=== PATIENT | female | born 1980 | race African-American/Black ===

== ENCOUNTER 2016-12-20 15:09 | Inpatient (IN) | payer OTHER ==
[2016-12-20 15:13] VITALS: BMI 29.2
--- NOTE | 2016-12-20 16:05 | PDOC ---
History of Present Illness - General Chief Complaint: Pain Stated Complaint: ABD PAIN History Source: Patient Exam Limitations: No Limitations - History of Present Illness Initial Comments: 12/20/16 16:05 This is a 36 yo F with PMH of preeclampsia affecting liver, and PSH of C section and tonsillectomy, who presents with epigastric pain since 6 am. Pain started suddenly and woke her up from sleep. It is sharp, throbbing, nonradiating, aggravated by movement and not alleviated by anything, including tums and food. She has never had pain like this before. She recently intentionally lost 15 lb. She denies associated n/v, chest pain, abd pain, sob, diarrhea, constipation, h/a, f/c, dysuria. Her last normal BM was yesterday. she denies melena, hematochezia. 12/20/16 17:16 12/20/16 18:07 Past History - Past Medical History Allergies/Adverse Reactions: Allergies Allergy/AdvReac Type Severity Reaction Status Date / Time No Known Allergies Allergy Verified 12/20/16 15:13 Home Medications: Ambulatory Orders NK [No Known Home Medication] 12/20/16 Other medical history: NONE - Psycho/Social/Smoking Cessation Hx Suicidal Ideation: No Smoking History: Never smoked Hx Alcohol Use: No Drug/Substance Use Hx: No Review of Systems - Review of Systems Able to Perform ROS?: Yes Comments:: 12/20/16 17:19 Is the patient limited Citizen Of [place] proficient: No Constitutional: No: Chills, Fever, Weakness, Unexplained wgt Loss HEENTM: No: Nose Congestion, Throat Pain, Difficulty Swallowing Respiratory: No: Cough, Orthopnea, Shortness of Breath ABD/GI: Yes: Abdominal cramping. No: Abdominal Distended, Blood Streaked Bowels , Constipated, Diarrhea, Nausea, Poor Appetite, Rectal Bleeding, Vomiting, Tarry Stools : No: Dysuria, Flank Pain Musculoskeletal: No: Back Pain, Joint Pain, Neck Pain Integumentary: No: Bruising, Pruritus, Rash Neurological: No: Headache, Numbness, Paresthesia Psychiatric: No: Anxiety, Depression Endocrine: No: Change in Weight Hematologic/Lymphatic: No: Anemia, Blood Clots, Easy Bleeding, Easy Bruising All Other Systems: Reviewed and Negative *Physical Exam - Vital Signs Last Vital Signs Temp Pulse Resp BP Pulse Ox 97.8 F 87 20 116/71 100 12/20/16 15:10 12/20/16 15:10 12/20/16 15:10 12/20/16 15:10 12/20/16 15:10 - Physical Exam Comments: 12/20/16 17:20 12/20/16 17:21 General: moderate distress AAOx3 HEENT:PERRLA EOMI, sclera anicteric, conjunctiva clear CV: RRR S1S2 Pulm: CTA b/l GI: soft, moderately tender epigastric area, nondistended, no guarding, no rebound, no mass, reduced bowel sounds. no CVA tenderness Neuro: CN II-XII grossly intact Musculoskeletal: no peripheral edema or calf tenderness Heart Score/ECG Review #1 ECG reviewed & interpreted by me at: 17:40 (sinus adiel 65, no st changes ) General ECG Interpretation: Sinus Rhythm, Normal Intervals, No acute ischemic changes ED Treatment Course - LABORATORY CBC & Chemistry Diagram: 12/20/16 16:51 12/20/16 16:51 Medical Decision Making - Medical Decision Making 12/20/16 17:19 Patient presents with clinical picture most consistent with epigastric pain due to cholecystitis vs gastritis vs gastric ulcer. R/o acs, esophageal perf, erroding ulcer, abscess CBC unremarkable CMP Preg test CXR patient given zantac, maalox with no symptom relief, then given oxycodone with some relief. EKG unremarkable. 12/20/16 17:22 Bedside US + murphys, reveals gb with thickened wall, possible sludge. Will start IVF NS 1L, IV morphine. Abx not indicated ( no leukocytosis or fever ) CMP unremarkable, Serum negative, will order CXR and GB US 12/20/16 17:49 12/20/16 18:06 12/20/16 18:53 *DC/Admit/Observation/Transfer Diagnosis at time of Disposition: Epigastric abdominal pain
[2016-12-20] MEDS ORDERED: MAG HYDROX/AL HYDROX/SIMETH 30 ML UNIT-DOSE CUP PO ONE (16:26)
[2016-12-20] MEDS ORDERED: FAMOTIDINE 20 MG/50 ML IVPB 50 ML IVPB ONE (16:26)
[2016-12-20] MEDS ORDERED: MAG HYDROX/AL HYDROX/SIMETH 30 ML UNIT-DOSE CUP ONE (16:27)
[2016-12-20] MEDS ORDERED: RANITIDINE HCL 150 MG TABLET (FP) ONE (16:29)
[2016-12-20] MEDS ORDERED: RANITIDINE HCL 150 MG TABLET (FP) PO ONE (16:35)
--- NOTE | 2016-12-20 16:45 | PDOC ---
Attending Attestation - Resident Resident Name: Noemí Shi - ED Attending Attestation I have performed the following: I have examined & evaluated the patient, The case was reviewed & discussed with the resident, I agree w/resident's findings & plan, Exceptions are as noted - HPI HPI: 36 yo F no significant PMH presents with epigastric pain, sudden onset, waxing and waning, severe at times. She has not had pain like it in the past. She has not taken anything for the pain. No fever, chills, nausea, vomiting, or diarrhea. - Physicial Exam PE: GENERAL: Awake, alert, and fully oriented, in no acute distress. Appears uncomfortable. HEAD: No signs of trauma EYES: PERRLA, EOMI, sclera anicteric, conjunctiva clear ENT: Auricles normal inspection, hearing grossly normal, nares patent, oropharynx clear without exudates. Moist mucosa NECK: Normal ROM, supple, no lymphadenopathy, JVD, or masses LUNGS: Breath sounds equal, clear to auscultation bilaterally. No wheezes, and no crackles HEART: Regular rate and rhythm, normal S1 and S2, no murmurs, rubs or gallops ABDOMEN: Soft, +epigastric tenderness, normoactive bowel sounds. No guarding, no rebound. No masses EXTREMITIES: Normal range of motion, no edema. No clubbing or cyanosis. No cords , erythema, or tenderness NEUROLOGICAL: Cranial nerves II through XII grossly intact. Normal speech, normal gait SKIN: Warm, Dry, normal turgor, no rashes or lesions noted. - Medical Decision Making See continuation of care note for details.
[2016-12-20] MEDS ORDERED: oxyCODONE HCL 5 MG TABLET PO ONE (17:02)
[2016-12-20] MEDS ORDERED: oxyCODONE HCL 5 MG TABLET ONE (17:12)
[2016-12-20 17:15] LABS: EOSINOPHIL 1.5 % (0-4.5); MCH 28.4 pg (25.7-33.7); MCHC 33.6 g/dl (32.0-36.0); MEAN CELL VOLUME 84.5 fl (80-96); MEAN PLT VOLUME 8.6 fl (7.5-11.1); NEUTROPHILS 63.2 % (42.8-82.8); PLATELET COUNT 309 K/MM3 (134-434); WHITE BLOOD COUNT 6.6 K/mm3 (4.0-10.0)
[2016-12-20 17:49] LABS: ALBUMIN 3.9 g/dl (3.4-5.0); ANION GAP 8 (8-16); CALCIUM 9.2 mg/dL (8.5-10.1); CO2 28 mmol/L (21-32); CREATININE 0.6 mg/dL (0.55-1.02); GLUCOSE,RANDOM 83 mg/dL (74-106); SGOT/AST 12 U/L (15-37); SGPT/ALT 18 U/L (12-78); TOT PROT 7.2 g/dl (6.4-8.2)
[2016-12-20 17:51] LABS: ALK PHOS 48 U/L (45-117); TROPONIN I < 0.02 ng/ml (0.00-0.05)
[2016-12-20] MEDS ORDERED: morphine CARPU-JECT 4 MG/1 ML DISP.SYRIN IVPUSH ONE ×3 (17:51→22:13)
[2016-12-20] MEDS ORDERED: SODIUM CHLORIDE 1,000 ML IV STA (17:55)
[2016-12-20] MEDS ORDERED: morphine CARPU-JECT 4 MG/1 ML DISP.SYRIN ONE ×3 (18:29→22:15)
[2016-12-20] MEDS ORDERED: ONDANSETRON 4 MG/2 ML VIAL IVPUSH ONE (19:38)
[2016-12-20] MEDS ORDERED: ONDANSETRON 4 MG/2 ML VIAL ONE (19:39)
--- NOTE | 2016-12-20 22:07 | PDOC ---
*Physical Exam - Vital Signs Last Vital Signs Temp Pulse Resp BP Pulse Ox 97.9 F 62 20 111/65 98 12/20/16 20:07 12/20/16 20:07 12/20/16 20:07 12/20/16 20:07 12/20/16 20:07 ED Treatment Course - LABORATORY CBC & Chemistry Diagram: 12/20/16 16:51 12/20/16 16:51 - ADDITIONAL ORDERS Additional order review: Laboratory Results 12/20/16 12/20/16 12/20/16 18:50 16:51 16:51 Sodium 140 Potassium 3.7 Chloride 104 Carbon Dioxide 28 Anion Gap 8 BUN 11 Creatinine 0.6 Creat Clearance w eGFR > 60 Random Glucose 83 Lactic Acid 1.0 Calcium 9.2 Total Bilirubin 1.0 AST 12 L ALT 18 Alkaline Phosphatase 48 Creatine Kinase 146 Troponin I < 0.02 Total Protein 7.2 Albumin 3.9 Lipase 110 Serum , Qual Negative 12/20/16 16:51 RBC 4.48 MCV 84.5 MCHC 33.6 RDW 13.0 MPV 8.6 Neutrophils % 63.2 Lymphocytes % 26.8 Monocytes % 7.5 Eosinophils % 1.5 Basophils % 1.0 - RADIOLOGY Radiology Studies Ordered: Category Date Time Status CXRPORT [CHEST X-RAY PORTABLE*] [RAD] Stat Radiology 12/20/16 18:39 Taken - Medications Given in the ED: ED Medications Discontinued Medications Generic Name Dose Route Start Last Admin Trade Name Freq PRN Reason Stop Dose Admin Al Hydroxide/Mg Hydroxide 30 ml 12/20/16 16:26 12/20/16 16:35 Mylanta Oral Suspension - PO 12/20/16 16:27 30 ml ONCE ONE Administration Famotidine/Sodium Chloride 50 mls @ 100 mls/hr 12/20/16 16:26 12/20/16 16:36 Pepcid 20 Mg Premixed Ivpb - IVPB 12/20/16 16:55 Not Given ONCE ONE Sodium Chloride 1,000 mls @ 1,000 mls/hr 12/20/16 17:55 12/20/16 18:06 Normal Saline - IV 12/20/16 18:54 1,000 mls/hr ASDIR STA Administration Morphine Sulfate 4 mg 12/20/16 17:51 12/20/16 18:33 Morphine Injection - IVPUSH 12/20/16 17:52 4 mg ONCE ONE Administration Morphine Sulfate 4 mg 12/20/16 19:25 12/20/16 19:55 Morphine Injection - IVPUSH 12/20/16 19:26 4 mg ONCE ONE Administration Ondansetron HCl 4 mg 12/20/16 19:38 12/20/16 19:42 Zofran Injection IVPUSH 12/20/16 19:39 4 mg ONCE ONE Administration Oxycodone HCl 10 mg 12/20/16 17:02 12/20/16 17:12 Roxicodone - PO 12/20/16 17:03 10 mg ONCE ONE Administration Ranitidine HCl 150 mg 12/20/16 16:35 12/20/16 16:37 Zantac - PO 12/20/16 16:36 150 mg ONCE ONE Administration Medical Decision Making - Medical Decision Making 12/20/16 19:11 Care assumed by this junior technical writer at shift change. In short, patient with epigastric and mid-abdominal pain, sudden onset, sharp, severe at times. Awaiting sono for further evaluation. 12/21/16 22:12 Sono with no acute findings. Patient reassessed. She is still having pain, with some reported improvement from prior exam, but still noted to be exquisitely tender to the mid-abdomen. Will obtain CT to further evaluate. 12/21/16 00:26 Case d/w Dr. Gutiérrez. Will admit for SBO. I have written order for NGT and IV fluids. Will request evaluation by Dr. Jacob as per Dr. Gutiérrez request. *DC/Admit/Observation/Transfer Diagnosis at time of Disposition: Small bowel obstruction - Discharge Dispostion Condition at time of disposition: Guarded Admit: Yes - Referrals - Patient Instructions - Post Discharge Activity
[2016-12-21] MEDS ORDERED: SODIUM CHLORIDE 1,000 ML IV SCH (00:30)
[2016-12-21] MEDS ORDERED: LIDOCAINE HCL 2% JELLY 10 ML CARTRIDGE ONE (01:22)
[2016-12-21 01:55] LABS: URINE APPEARANCE CLEAR; URINE BILIRUBIN NEGATIVE (NEGATIVE); URINE COLOR LTYELLOW; URINE GLUCOSE (UA) NEGATIVE (NEGATIVE); URINE KETONE 2+ (NEGATIVE); URINE NITRITE NEGATIVE (NEGATIVE); URINE PROTEIN NEGATIVE (NEGATIVE); URINE UROBILINOGEN NEGATIVE E.U./dl (0.2-1.0)
[2016-12-21 01:58] LABS: URINE BLOOD 2+ (NEGATIVE); URINE LEUK ESTERASE TRACE (NEGATIVE)
[2016-12-21] MEDS: SODIUM CHLORIDE 1,000 ML IV SCH ×2 (02:01→15:11)
[2016-12-21 02:13] LABS: URINE MUCUS RARE; URINE RBC 20 /hpf (0-3); URINE WBC 6 /hpf (3-5)
[2016-12-21] MEDS ORDERED: TETRACAINE/BENZOCAINE/BUTAMBEN 20 GM SPR TP PRN ×2 (02:14→19:53)
[2016-12-21] MEDS: morphine CARPU-JECT 2 MG/1 ML DISP.SYRIN IVPUSH PRN ×4 (02:34→15:08)
[2016-12-21] MEDS: ONDANSETRON 4 MG/2 ML VIAL IVPB PRN ×2 (02:35→10:57)
[2016-12-21] MEDS ORDERED: PANTOPRAZOLE SODIUM 40 MG in SODIUM CHLORIDE 100 ML IVPB SCH (10:00)
[2016-12-21] MEDS ORDERED: PANTOPRAZOLE SODIUM 40 MG/100 ML PRE-DOCKED IVPB SCH (10:00)
--- NOTE | 2016-12-21 11:08 | EKG ---
Test Reason : Blood Pressure : / mmHG Vent. Rate : 055 BPM Atrial Rate : 055 BPM P-R Int : 116 ms QRS Dur : 090 ms QT Int : 450 ms P-R-T Axes : 037 062 064 degrees QTc Int : 430 ms SINUS BRADYCARDIA OTHERWISE NORMAL ECG NO PREVIOUS ECGS AVAILABLE Confirmed by BLADE MARTINEZ MD ([id number]) on 12/21/2016 11:08:17 AM Referred By: Confirmed By:BLADE MARTINEZ MD
--- NOTE | 2016-12-21 15:12 | CON.GI ---
Consult Consult Specialty:: GI Referred by:: Dr. Beverly Reason for Consultation:: Abdominal Pain - History of Present Illness Chief Complaint: I started having abdominal pain yesterday morning History of Present Illness: 36F admitted for evaluation of progressive abdominal pain. She explains that she was in her USOH up until yesterday morning when she was awoken by pain intially in the epigastrium. It then localized to the the mid/right abdomen. She at 1/2 a bagel and drank tea thinking the pain was from hunger. The pain worsened and she then took tums without relief. the pain intensity increased and she ultimately went to the ER yesterday afternoon because the pain persisted. She had vomiting only after receiving IV morphine in ER. CT scan revealed findings c/w PSBO with possible transition point at thickened loop of small bowel. She denied diarrhea, rectal bleeding or similar episodes in the past. There is no family history of IBD. - History Source History Provided By: Patient Limitations to Obtaining History: No Limitations - Past Medical History ...LMP: 11/27/16 ...: No Additional Medical History: Preeclampsia - Past Surgical History Past Surgical History: Yes: Additional Surgical History: IUD placement - Alcohol/Substance Use Hx Alcohol Use: No History of Substance Use: reports: None - Smoking History Smoking history: Never smoked - Social History Usual Living Arrangement: Alone ADL: Independent Occupation: [employer] and [employer] Place of : [facility] History of Recent Travel: No Home Medications - Allergies Allergies/Adverse Reactions: Allergies Allergy/AdvReac Type Severity Reaction Status Date / Time No Known Allergies Allergy Verified 12/20/16 15:13 - Home Medications Home Medications: Ambulatory Orders NK [No Known Home Medication] 12/20/16 Family Disease History - Family Disease History Family Disease History: Other: Father (alive: DM II), Mother (alive: healthy), Brother (1: healthy), Sister (1: healthy), Daughter (Autism) Other Family History: No family history of colorectal cancer or other GI malignancy Review of Systems - Review of Systems Constitutional: denies: Chills, Lethargy Cardiovascular: denies: Chest Pain Respiratory: denies: SOB Gastrointestinal: reports: Abdominal Pain, Bloating, Vomiting. denies: Constipation, Diarrhea, Melena, Rectal Bleeding Pain Intensity: 10 Physical Exam-GI Vital Signs: Vital Signs Temperature 98.9 F 12/21/16 14:26 Pulse Rate 66 12/21/16 14:26 Respiratory Rate 18 12/21/16 14:26 Blood Pressure 132/64 12/21/16 14:26 O2 Sat by Pulse Oximetry (%) 96 12/21/16 00:46 Constitutional: Yes: Calm Eyes: No: Sclera Icterus Cardiovascular: Yes: Regular Rate and Rhythm. No: Murmur Respiratory: Yes: CTA Bilaterally Gastrointestinal Inspection: No: Distention, Hernia ...Auscultate: Yes: Hypoactive Bowel Sounds ...Palpate: Yes: Tenderness (Marked tenderness to light palpation in the mid/ right abdomen) Edema: No Neurological: Yes: Alert, Oriented Imaging - Results Cat Scan: Report Reviewed, Image Reviewed Problem List - Problems (1) Small bowel obstruction Assessment/Plan: Persistent and marked focal tenderness in the mid/right paramedian area of the abdomen. given CT scan findings and acuity of the onset of her complaints, ? if this represents partially torsed portion of bowel from adhesion/band, ? intusscepted portion of bowel. She is being evaluated by the surgeon currently and likely will be going for laparoscopy given the persistence of her symptomatology IV Abx for now Code(s): K56.69 - OTHER INTESTINAL OBSTRUCTION
--- NOTE | 2016-12-21 15:31 | PN ---
Progress Note (short form) - Note Progress Note: surgery pt seen and examined. full consult dictated. 36f with previous c-sec, presents with now 2 days epigastric abd pain after eating pineapple. Ct shows concern for partial sbo and inflammatory fluid. Ngt has had minimal output overnight. Pt denies flatus or bm. on exam abd is soft, mild distension, mild epigastric tenderness Plan- persistent abd pain "I am miserable" with partial small bowel obstuction and abd fluid on CT. Pt wants exploratory surgery. will move in direction of surgery. Pt understands that there may be no surgical pathology but in the setting of persistent pain I am concerned for bowel compromise.
[2016-12-21] MEDS ORDERED: LEVOFLOXACIN 500 MG IVPB 100 ML IVPB SCH (15:45)
--- NOTE | 2016-12-21 15:51 | HP ---
Admitting History and Physical - Primary Care Physician PCP: Daisy Amador - Admission Chief Complaint: abdominal pain History of Present Illness: Ms Griffiths is a 36 year old female who comes in with abdominal pain. She says she was in her normal state of health until 2 days ago. She was eating and developed acute onset of pain. She says she was unsure if it was just indigestion or secondary to food, so she waited to see if it would improve. However it did not improve and she came in. She says the pain is located in her mid-lower abdomen. It is dull/achy but has sharp pain at times. It does not radiate. She had nausea and vomiting only after receiving morphine. She denies diarrhea. She denies fevers, chills, chest pain, shortness of breath, difficulty or pain on urination, or swelling. She is otherwise healthy with no medical problems History Source: Patient Limitations to Obtaining History: No Limitations - Past Medical History ...LMP: 11/27/16 ...: No - Past Surgical History Past Surgical History: Yes: - Smoking History Smoking history: Never smoked - Alcohol/Substance Use Hx Alcohol Use: No History of Substance Use: reports: None - Social History ADL: Independent Occupation: [employer] and [employer] History of Recent Travel: No Home Medications - Allergies Allergies/Adverse Reactions: Allergies Allergy/AdvReac Type Severity Reaction Status Date / Time No Known Allergies Allergy Verified 12/20/16 15:13 - Home Medications Home Medications: Ambulatory Orders NK [No Known Home Medication] 12/20/16 Family Disease History - Family Disease History Family Disease History: Other: Father (alive: DM II), Mother (alive: healthy), Brother (1: healthy), Sister (1: healthy), Daughter (Autism) Other Family History: No family history of colorectal cancer or other GI malignancy Review of Systems Findings/Remarks: Full review of systems obtained, as per HPI and otherwise negative Physical Examination Vital Signs: Vital Signs Temperature 98.9 F 12/21/16 14:26 Pulse Rate 66 12/21/16 14:26 Respiratory Rate 18 12/21/16 14:26 Blood Pressure 132/64 12/21/16 14:26 O2 Sat by Pulse Oximetry (%) 96 12/21/16 00:46 Constitutional: Yes: Moderate Distress Eyes: Yes: Conjunctiva Clear, EOM Intact, PERRL HENT: Yes: Atraumatic, Normocephalic Cardiovascular: Yes: Regular Rate and Rhythm. No: Gallop, Murmur, Rub Respiratory: Yes: Regular, CTA Bilaterally. No: Rales, Rhonchi, Wheezes Gastrointestinal: Yes: Hypoactive Bowel Sounds, Tenderness. No: Distention Extremities: Yes: WNL Edema: No Labs: Laboratory Results - last 24 hr 12/20/16 12/20/16 12/20/16 16:51 16:51 16:51 WBC 6.6 RBC 4.48 Hgb 12.7 Hct 37.8 MCV 84.5 MCHC 33.6 RDW 13.0 Plt Count 309 MPV 8.6 Neutrophils % 63.2 Lymphocytes % 26.8 Monocytes % 7.5 Eosinophils % 1.5 Basophils % 1.0 Sodium 140 Potassium 3.7 Chloride 104 Carbon Dioxide 28 Anion Gap 8 BUN 11 Creatinine 0.6 Creat Clearance w eGFR > 60 Random Glucose 83 Lactic Acid Calcium 9.2 Total Bilirubin 1.0 AST 12 L ALT 18 Alkaline Phosphatase 48 Creatine Kinase 146 Troponin I < 0.02 Total Protein 7.2 Albumin 3.9 Lipase 110 Serum , Qual Negative Urine Color Urine Appearance Urine pH Ur Specific [place] Urine Protein Urine Glucose (UA) Urine Ketones Urine Blood Urine Nitrite Urine Bilirubin Urine Urobilinogen Ur Leukocyte Esterase Urine RBC Urine WBC Ur Epithelial Cells Urine Mucus 12/20/16 12/21/16 18:50 01:45 WBC RBC Hgb Hct MCV MCHC RDW Plt Count MPV Neutrophils % Lymphocytes % Monocytes % Eosinophils % Basophils % Sodium Potassium Chloride Carbon Dioxide Anion Gap BUN Creatinine Creat Clearance w eGFR Random Glucose Lactic Acid 1.0 Calcium Total Bilirubin AST ALT Alkaline Phosphatase Creatine Kinase Troponin I Total Protein Albumin Lipase Serum , Qual Urine Color Ltyellow Urine Appearance Clear Urine pH 6.0 Ur Specific [place] 1.010 Urine Protein Negative Urine Glucose (UA) Negative Urine Ketones 2+ H Urine Blood 2+ H Urine Nitrite Negative Urine Bilirubin Negative Urine Urobilinogen Negative Ur Leukocyte Esterase Trace H Urine RBC 20 Urine WBC 6 Ur Epithelial Cells Few Urine Mucus Rare Imaging - Results Chest X-ray: Report Reviewed, Image Reviewed Cat Scan: Report Reviewed Problem List - Problems (1) Small bowel obstruction Assessment/Plan: -concerning for adhesions considering history of -GI and general surgery consulted -NGT in place -npo -IV hydration -planning for surgery Code(s): K56.69 - OTHER INTESTINAL OBSTRUCTION
--- NOTE | 2016-12-21 16:24 | CONS ---
DATE OF CONSULTATION: 12/21/2016 This is a consultation at the request of Dr. Karthik Beverly. BRIEF HISTORY: This is a 36-year-old female without significant past medical history, who approximately 2 days ago after eating pineapple in the middle of the night, woke up at 6:00 in the morning with severe abdominal pain, mostly in her upper abdomen. This pain lasted until noon, and therefore, she went to the [facility] Emergency Room. There, she had a CAT scan of her abdomen and pelvis which was suggestive of a partial bowel obstruction with some small amount of fluid seen in the right lower quadrant. She did not appear to have appendicitis. She was admitted with NG tube decompression. Overnight, her pain has persisted. She states she feels miserable. There is concern from her medical team that she needs surgery. The patient denies diarrhea, denies flatus, states her pain comes and goes in waves. She denies any vomiting. 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 PAST MEDICAL HISTORY: Otherwise negative. PAST SURGICAL HISTORY: Includes a and a tonsillectomy. ALLERGIES: She has no known drug allergies. SOCIAL HISTORY: Negative for alcohol. Negative for tobacco. FAMILY HISTORY: Noncontributory. HOME MEDICATIONS: Have been reviewed, and they are nil. REVIEW OF SYSTEMS: General: Denies fatigue or malaise. Cardiac: Denies chest pain or palpitations. Respiratory: Denies shortness of breath or wheeze. Gastrointestinal: As in HPI. Genitourinary: Denies dysuria. Musculoskeletal: Denies joint pain, joint swelling. Psychiatric: Denies anxiety, depression, or hearing voices. PHYSICAL EXAMINATION: General: This is a well-developed, well-nourished, 36-year-old female in no distress. Vital Signs: She is currently afebrile. Her vital signs are stable. Her heart rate is 66. Her blood pressure is 132/64. HEENT: Her head is normocephalic. Her sclerae are anicteric. Neck: Supple. Chest: Clear. Abdomen: Soft. It is mildly distended. She has mild epigastric tenderness. She does not have rebound. She has minimal discomfort in the right lower quadrant. Extremities: No edema. DIAGNOSTIC DATA: On review of her laboratory, her white blood cell count is normal at 6.6 without a shift. Her chemistries are unremarkable. Her urinalysis shows 2+ blood, otherwise unremarkable. On review of her imaging, she has a CAT scan of her abdomen and pelvis which is consistent with a partial small-bowel obstruction with a transition point noted in the right lower quadrant. One loop of small bowel appears to be thickened within the right lower quadrant, and this seems to be a transition zone. ASSESSMENT: This is a 36-year-old female now with 2 days of abdominal pain, CAT scan consistent with a partial bowel obstruction with a thickened, inflamed loop of bowel that appears to be a transition zone. Despite her normal vitals, despite minimal nasogastric tube output, despite normal white blood cell count, the patient's pain persists and she wishes to have exploratory surgery. At this point, this is reasonable as if this was an enteritis, it should have resolved by now. However, patient understands that there is a possibility that she will have a nontherapeutic laparotomy. Patient understands this. She also understands that she will unlikely be able to sing next week if she has surgery now, but she states because of her persistent pain, she wishes to have surgery to make sure that nothing terrible is happening. I am also concerned based on her symptoms that she may have some compromise to her bowel. Risks and benefits of surgery have been explained to the patient in detail. These are including, but not limited to, the possibility of a negative laparotomy, the possibility of a nontherapeutic laparotomy, the possibility of injury to viscera, the possibility of blood loss requiring blood transfusion, the possibility of future hernia, possibility of future obstruction, plus a multitude of medical risks including, but not limited to, cardiac, neurologic, pulmonary, and vascular complications, even . The patient understands these risks and is agreeable to surgery. We will move in the direction of laparotomy. DO TRISTIAN WILSON/[id number]
[2016-12-21] MEDS ORDERED: morphine CARPU-JECT 4 MG/1 ML DISP.SYRIN IVPB PRN (16:56)
[2016-12-21] MEDS ORDERED: oxyCODONE HCL 5 MG TABLET PO PRN (16:56)
[2016-12-21] MEDS ORDERED: ACETAMINOPHEN 325 MG TABLET (FP) PO PRN (16:56)
[2016-12-21] MEDS ORDERED: ONDANSETRON 4 MG/2 ML VIAL IVPB PRN (16:56)
--- NOTE | 2016-12-21 17:31 | OP ---
Operative Note - Note: Operative Date: 12/21/16 Pre-Operative Diagnosis: small bowel obstruction, unrelenting abd pain Operation: exploratory laparotomy, lysis of adhesions Findings: internal hernia Post-Operative Diagnosis: Same as Pre-op Surgeon: Bryan Alford Carpenter Inspector: Damon Jacob Anesthesiologist/PLATE [employer]ILL MILL HAND: Olesya Nicolas Anesthesia: General Estimated Blood Loss (mls): 10 Operative Report Dictated: Yes
[2016-12-21] MEDS ORDERED: PROPOFOL 20 ML ONE ×4 (17:55→19:06)
[2016-12-21] MEDS ORDERED: SUCCINYLCHOLINE CHLORIDE 200 MG/10 ML VIAL ONE (17:56)
[2016-12-21] MEDS ORDERED: ROCURONIUM BROMIDE 50 MG/5 ML VIAL ONE ×2 (18:32→19:06)
[2016-12-21] MEDS ORDERED: LEVOFLOXACIN 500 MG PREMIX BAG IVPB ONE (18:35)
[2016-12-21] MEDS ORDERED: NEOSTIGMINE METHYLSULFATE 0.5 MG/ML - 10 ML MDV ONE (19:11)
[2016-12-21] MEDS ORDERED: HYDROmorphone HCL CARPU-JECT 2 MG/1 ML DISP.SYRIN ONE (20:17)
[2016-12-21] MEDS: HYDROmorphone HCL CARPU-JECT 1 MG/1 ML DISP.SYRIN IVPUSH PRN ×2 (20:20→20:30)
[2016-12-21] MEDS ORDERED: IBUPROFEN 800 MG/8 ML IJ IVPB ONE (20:47)
[2016-12-21] MEDS: IBUPROFEN 800 MG/8 ML IJ IVPB PRN (20:50)
--- NOTE | 2016-12-21 22:03 | OP ---
DATE OF OPERATION: 12/21/2016 PREOPERATIVE DIAGNOSIS: Small bowel obstruction, persistent abdominal pain. POSTOPERATIVE DIAGNOSIS: Small bowel obstruction, persistent abdominal pain. PROCEDURE: Exploratory laparotomy, lysis of adhesions, reduction of internal hernia, lavage. SURGEON: Bryan Alford DO CONCRETE WORKER: Damon Jacob MD ANESTHESIOLOGIST: Olesya Nicolas MD INTRAOPERATIVE FINDINGS: Internal hernia caused by an adhesion resulting in a small bowel obstruction. ESTIMATED BLOOD LOSS: Minimal. COMPLICATIONS: None. DISPOSITION: Recovery room in stable condition. BRIEF HISTORY: This is a 36-year-old female who presented to [facility] with abdominal pain. CAT scan was consistent with a partial bowel obstruction. The patient had persistent pain for more than 2 day and presents now for exploratory surgery. PROCEDURE IN DETAIL: The patient was placed in the supine position. General anesthesia was initiated. The abdomen was prepped and draped in sterile fashion. A midline incision was made approximately 3 inches above and 3 inches below the umbilicus. Scalpel was used to go through extensive subcutaneous tissue. The fascia was opened in the midline. The peritoneum was then entered sharply. Upon entering the abdominal cavity, the patient had inflammatory ascites, which was suctioned. The small bowel was then run. An internal hernia was located in the right lower quadrant containing a trapped loop of bowel. Once this was freed, this was noted to clearly be the source of the patient's obstruction. There were collapsed loops distally and dilated loops proximally. At this point, the entire bowel was run. There were no other problems noted. No other significant adhesions encountered. The liver was palpated smooth. There were no obvious masses noted. At this point, a limited lavage was done. All return was clear. The midline fascia was then closed with running No. 1 PDS suture. The subcutaneous tissue was irrigated. The skin was closed with sadie and Dermabond dressing was placed. Overall, the patient tolerated the procedure well. There were no complications. DO TRISTIAN WILSON/[id number] MTDD
[2016-12-21] MEDS: LACTATED RINGERS SOLUTION 1,000 ML IV SCH (23:00)
[2016-12-22] MEDS: IBUPROFEN 800 MG/8 ML IJ IVPB PRN ×3 (02:53→20:38)
[2016-12-22 08:14] LABS: BASOPHIL 0.1 % (0-2.0); MCH 28.5 pg (25.7-33.7); MCHC 33.7 g/dl (32.0-36.0); MEAN CELL VOLUME 84.5 fl (80-96); MEAN PLT VOLUME 8.8 fl (7.5-11.1); PLATELET COUNT 289 K/MM3 (134-434); RDW 12.8 % (11.6-15.6); WHITE BLOOD COUNT 15.1 K/mm3 (4.0-10.0)
[2016-12-22 08:20] LABS: ALBUMIN 3.4 g/dl (3.4-5.0); ALK PHOS 43 U/L (45-117); ANION GAP 9 (8-16); BILIRUBIN,TOTAL 0.8 mg/dL (0.2-1.0); CALCIUM 8.6 mg/dL (8.5-10.1); CO2 25 mmol/L (21-32); CREATININE 0.7 mg/dL (0.55-1.02); GLUCOSE,RANDOM 129 mg/dL (74-106); MAGNESIUM 2.2 mg/dL (1.8-2.4); PHOSPHOROUS 3.2 mg/dL (2.5-4.9); SGOT/AST 12 U/L (15-37); SGPT/ALT 13 U/L (12-78); TOT PROT 6.4 g/dl (6.4-8.2)
--- NOTE | 2016-12-22 09:20 | PN ---
GI Progress Note Subjective: POD 1. Internal hernia noted w/ CRISTA No flatus/BM Minimal NGT output overnight - Objective Vital Signs: Vital Signs Temperature 99.3 F 12/22/16 06:33 Pulse Rate 92 H 12/22/16 05:41 Respiratory Rate 20 12/22/16 05:41 Blood Pressure 120/56 12/22/16 05:41 O2 Sat by Pulse Oximetry (%) 98 12/21/16 22:38 Constitutional: Calm Eyes: No: Sclera Icterus Cardiovascular: Yes: Regular Rate and Rhythm Respiratory: Yes: Diminished (at bases b/l) Gastrointestinal Inspection: Yes: Scars (surgical incision w/ sadie) ...Auscultate: Yes: No Bowel Sounds ...Palpate: Yes: Tenderness (TTP at incision site. No guarding/rebound). No: Hepatomegaly ...Percussion: No: Tympanitic Edema: No Neurological: Yes: Alert, Oriented Labs: CBC, BMP 12/22/16 07:30 12/22/16 07:30 Problem List - Problems (1) Small bowel obstruction Assessment/Plan: POD 1: internal hernia found w/ CRISTA Post-Op care per surgery If continued worsening WBC count, consider ID evaluation w/ adjustment of antibiotics\ Recall as needed Code(s): K56.69 - OTHER INTESTINAL OBSTRUCTION
[2016-12-22] MEDS: LEVOFLOXACIN 500 MG IVPB 100 ML IVPB SCH (10:56)
[2016-12-22] MEDS: ENOXAPARIN NA (PORCINE) 40 MG/0.4 ML DISP.SYRIN SQ SCH (11:00)
[2016-12-22] MEDS: PANTOPRAZOLE SODIUM 40 MG/100 ML PRE-DOCKED IVPB SCH (11:00)
--- NOTE | 2016-12-22 11:51 | PN ---
Progress Note (short form) - Note Progress Note: Anesthesia POD#1 S/P Ex Lap Lysis of adhesions under GA. Awake,alert and talking,VSS,white count is high. C/O bad sore throat,no N/V . 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 Intubated with the help of [place] scope. A/P She is explained about the sore throat due to the difficult airway as well as NGT placed. ENT consult is called. Voice rest and racemic Epinephrine is suggested to reduce the swelling. Aisha Barahona MD.
--- NOTE | 2016-12-22 11:57 | PN ---
Progress Note, Physician Chief Complaint: Patient says she is feeling better. No further abdominal pain. No nausea or vomiting. Denies chest pain and shortness of breath. Very adamant about removal of NGT. - Current Medication List Current Medications: Active Medications Acetaminophen (Tylenol -) 650 mg PO Q4H PRN PRN Reason: FEVER OR PAIN Benzocaine/Butamben/Tetracaine HCl (Cetacaine Blanco -) 1 spray TP PRN PRN PRN Reason: THROAT PAIN Enoxaparin Sodium (Lovenox -) 40 mg SQ DAILY [facility] Last Admin: 12/22/16 11:00 Dose: 40 mg Hydromorphone HCl (Dilaudid Injection -) 0.5 mg IVPUSH [id number] PRN Stop: 12/24/16 19:39 Last Admin: 12/21/16 20:30 Dose: 0.5 mg Lactated Ringer's (Lactated Ringers Solution) 1,000 mls @ 125 mls/hr IV ASDIR [facility] Last Admin: 12/21/16 23:00 Dose: Not Given Levofloxacin (Levaquin 500 Mg Premixed Ivpb -) 100 mls @ 100 mls/hr IVPB DAILY [facility] Last Admin: 12/22/16 10:56 Dose: 100 mls/hr Ibuprofen (Caldolor Injection -) 800 mg IVPB Q6H PRN PRN Reason: PAIN Last Admin: 12/22/16 02:53 Dose: 800 mg Morphine Sulfate (Morphine Injection -) 4 mg IVPB Q3H PRN PRN Reason: MODERATE PAIN Ondansetron HCl (Zofran Injection) 4 mg IVPB Q6H PRN PRN Reason: NAUSEA Oxycodone HCl (Roxicodone -) 7.5 mg PO Q4H PRN PRN Reason: PAIN Pantoprazole Sodium (Protonix 40mg Ivpb (Pre-Docked)) 40 mg IVPB DAILY [facility] Last Admin: 12/22/16 11:00 Dose: 40 mg - Objective Vital Signs: Vital Signs Temperature 99.3 F 12/22/16 06:33 Pulse Rate 92 H 12/22/16 05:41 Respiratory Rate 20 12/22/16 05:41 Blood Pressure 120/56 12/22/16 05:41 O2 Sat by Pulse Oximetry (%) 98 12/21/16 22:38 Constitutional: Yes: No Distress Cardiovascular: Yes: Regular Rate and Rhythm. No: Gallop, Murmur, Rub Respiratory: Yes: Regular, CTA Bilaterally. No: Rales, Rhonchi, Wheezes Gastrointestinal: Yes: Soft, Hypoactive Bowel Sounds, Tenderness (at incision site) Extremities: Yes: WNL Edema: No Labs: CBC, BMP 12/22/16 07:30 12/22/16 07:30 Problem List - Problems (1) Small bowel obstruction Code(s): K56.69 - OTHER INTESTINAL OBSTRUCTION Assessment/Plan (1) Small bowel obstruction Assessment/Plan: -s/p surgical intervention with CRISTA -surgery following -continue NGT, surgery to see and assess if can be removed Code(s): K56.69 - OTHER INTESTINAL OBSTRUCTION (2) Laryngeal edema -patient is a bob, has performance scheduled next week -however was difficult intubation prior to surgery -concern for laryngeal edema -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
--- NOTE | 2016-12-22 15:13 | PN ---
Progress Note (short form) - Note Progress Note: surgery pt seen and examined. feel well. minimal abd pain. no flatus--- pt demanded removal of ngt against advice. voiding but output not recorded afebrile abd- soft, minimal distension, mild tenderness, incision clean Laboratory Tests 12/22/ 07:30 WBC 15.1 H D A/P 1) Pod#1- cont npo except meds, ice chips, gum. ngt removed per pt. 2) prophylaxis- lovenox, protonix, oob 3) pain- morphine, lortab 4) leukocytosis- reactive, should improve tomorrow.
[2016-12-22] MEDS: LACTATED RINGERS SOLUTION 1,000 ML IV SCH (17:47)
--- NOTE | 2016-12-22 18:14 | CON.ENT ---
Consult Consult Specialty:: ENT Referred by:: Dr Beverly Reason for Consultation:: hoarseness - History of Present Illness Chief Complaint: hoarseness History of Present Illness: 36 yo F with acute onset of abdominal pain - dx small bowel obstruction, is now POD 1 s/p0 exploratory lap with lysis of adhesions, internal hernia found. pt is a bob, hoarse postop, by report intubation was difficult denies prior voice or throat problems, tonsils out in past, +hx allergic rhinitis, no sinus infections, had GERD when in past. pt insisted on NGtube removal because of throat irritation. 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 History of Recent Travel: No Home Medications - Allergies Allergies/Adverse Reactions: Allergies Allergy/AdvReac Type Severity Reaction Status Date / Time No Known Allergies Allergy Verified 12/20/16 15:13 - Home Medications Home Medications: Ambulatory Orders NK [No Known Home Medication] 12/20/16 Family Disease History - Family Disease History Family Disease History: Other: Father (alive: DM II), Mother (alive: healthy), Brother (1: healthy), Sister (1: healthy), Daughter (Autism) Other Family History: No family history of colorectal cancer or other GI malignancy Physical Exam-ENT Vital Signs: Vital Signs Temperature 99.0 F 12/22/16 15:36 Pulse Rate 93 H 12/22/16 15:36 Respiratory Rate 20 12/22/16 05:41 Blood Pressure 124/75 12/22/16 15:36 O2 Sat by Pulse Oximetry (%) 98 12/21/16 22:38 Constitutional: Yes: Well Nourished, No Distress, Calm Head: Yes: WNL Face: Yes: WNL Eyes: Yes: WNL Nose: Yes: Septum Deviated Nasal Passage: Yes: WNL Oral/Pharynx: Yes: WNL (tonsils absent), Other (flexible laryngoscopy: nasopharynx normal, base of tongue retro, epiglottis normal endolarynx: normal, vocal cords normal appearance, no lesion, hemorrrhage, nodule or polyp, mobility symmetric, no paresis or paralysis, moderate arytenoid edema, pyriform sinuses normal, no pooling) Outer Ear: Yes: WNL Neck: Yes: WNL Respiratory: Yes: WNL Neurological: Yes: WNL, Alert, Oriented Problem List - Problems (1) Hoarseness of voice Assessment/Plan: pt is acutely hoarse s/p general anesthesia with oroendotracheal tube, by report intubation was difficult. also had NG tube which was removed today flexible laryngoscopy shows normal vocal cords, NO nodule, polyp, lesion or hemorrhage Advise continue vocal rest for now consider reflux precautions advised pt to work with a cheerleading coach or speech pathologist to help her back to performance strength of voice follow-up in office after discharge Thank you for consultation, Bryan Cho MD FACS Code(s): R49.0 - DYSPHONIA
[2016-12-23] MEDS: LACTATED RINGERS SOLUTION 1,000 ML IV SCH ×3 (04:34→21:31)
--- NOTE | 2016-12-23 08:31 | PN ---
Progress Note (short form) - Note Progress Note: PATIENT FEELS BETTER TODAY . ANXIOUS TO EAT . EXAMINED AT BEDSIDE WITH SURGEON DR VÁZQUEZ . SHE DENIES ABDOMINAL PAIN. S/P LYSIS OF ADHESIONS / SBO / INTERNAL HERNIA. ( PRIOR HYSTERECTOMY ). DIFFICULT INTUBATION / NOW WITH HOARSENESS . SEEN BY ENT <> VOCAL CORDS O.K. Selected Entries 12/23/16 06:00 Temperature 99.6 F Pulse Rate 85 Respiratory 18 Rate Blood Pressure 141/70 Laboratory Tests 12/22/16 12/22/16 07:30 07:30 WBC 15.1 H D RBC 4.41 Hgb 12.6 Hct 37.3 Plt Count 289 Sodium 140 Potassium 3.7 Chloride 106 Carbon Dioxide 25 Anion Gap 9 BUN 9 Creatinine 0.7 Creat Clearance w eGFR > 60 Random Glucose 129 H D Calcium 8.6 Phosphorus 3.2 Magnesium 2.2 Total Bilirubin 0.8 AST 12 L ALT 13 D Alkaline Phosphatase 43 L Total Protein 6.4 Albumin 3.4 P/E ALERT / IN NO DISTRESS HEENT <> NECK SUPPLE / CAROTIDS 2 + COR <> S 1 S 2 <> NO M / NO GALLOPS CHEST <> FEW SCATTERED RHONCHI ABD <> SOFT NONTENDER / WOUND CLEAN / ABSENT BOWEL SOUNDS. EXT <> NO CALF TENDERNESS PLAN <> MAINTAIN NPO PER SURGERY. ADVANCE DIET PER SURGERY. INCREASE AMBULATION. PER ENT < REST VOICE > WHITE SUGAR SUPERVISOR / TRAINING .
[2016-12-23 09:03] LABS: BASOPHIL 0.3 % (0-2.0); EOSINOPHIL 0.3 % (0-4.5); MCH 28.7 pg (25.7-33.7); MEAN CELL VOLUME 84.5 fl (80-96); MEAN PLT VOLUME 8.5 fl (7.5-11.1); NEUTROPHILS 57.9 % (42.8-82.8); PLATELET COUNT 254 K/MM3 (134-434); RDW 12.7 % (11.6-15.6); WHITE BLOOD COUNT 6.9 K/mm3 (4.0-10.0)
[2016-12-23 09:28] LABS: ANION GAP 8 (8-16); CALCIUM 8.3 mg/dL (8.5-10.1); CO2 27 mmol/L (21-32); CREATININE 0.6 mg/dL (0.55-1.02); GLUCOSE,RANDOM 86 mg/dL (74-106); MAGNESIUM 2.1 mg/dL (1.8-2.4); PHOSPHOROUS 2.6 mg/dL (2.5-4.9)
[2016-12-23] MEDS: LEVOFLOXACIN 500 MG IVPB 100 ML IVPB SCH (10:11)
[2016-12-23] MEDS: ENOXAPARIN NA (PORCINE) 40 MG/0.4 ML DISP.SYRIN SQ SCH (15:19)
[2016-12-23] MEDS: PANTOPRAZOLE SODIUM 40 MG/100 ML PRE-DOCKED IVPB SCH (15:21)
[2016-12-23] MEDS: IBUPROFEN 800 MG/8 ML IJ IVPB PRN ×2 (15:26→21:30)
[2016-12-24 08:33] LABS: MCH 28.5 pg (25.7-33.7); MCHC 34.1 g/dl (32.0-36.0); MEAN CELL VOLUME 83.5 fl (80-96); PLATELET COUNT 242 K/MM3 (134-434); RDW 12.7 % (11.6-15.6); WHITE BLOOD COUNT 7.4 K/mm3 (4.0-10.0)
--- NOTE | 2016-12-24 08:37 | PN ---
Progress Note (short form) - Note Progress Note: PATIENT FEELS BETTER TODAY & STATES SHE HAD AN EXPLOSIVE BOWEL MOVEMENT TODAY . SHE IS HUNGRY. SHE DENIES ANY ABDOMINAL PAIN. HY OF SBO / INTERNAL HERNIA S/P LYSIS OF ADHESIONS . HY OF A DIFFICULT INTUBATION WITH HOARSENESS EVALUATED BY ENT. HER VOICE IS NORMAL NOW. Selected Entries Selected Entries 12/24/16 06:00 Temperature 99.5 F Pulse Rate 60 Respiratory 18 Rate Blood Pressure 129/72 Laboratory Tests P/E / ALERT /COMFORTABLE / NO DISTRESS HEENT <> NECK SUPPLE / CAROTIDS 2 + / NO BRUITS. COR <> S 1 S 2 <> NO M / NO G . CHEST <> CLEAR P & A . ABD <> SOFT NONTENDER / WOUND DRY / CLEAN EXT <> NO CALF TENDERNESS PLAN <> AWAIT SURGICAL EVAL. TO SEE IF OK TO BEGIN CLEARS. FOLLOW LABS. INCREASE AMBULATION ENCOURAGED. PER ENT // REST VOICE. PURSUE GOODWILL REPRESENTATIVE PER ENT RECOMMENDATIONS.
[2016-12-24] MEDS: LACTATED RINGERS SOLUTION 1,000 ML IV SCH ×2 (08:57→09:02)
[2016-12-24] MEDS: PANTOPRAZOLE SODIUM 40 MG/100 ML PRE-DOCKED IVPB SCH (09:00)
[2016-12-24] MEDS: ENOXAPARIN NA (PORCINE) 40 MG/0.4 ML DISP.SYRIN SQ SCH (09:00)
[2016-12-24] MEDS: LEVOFLOXACIN 500 MG IVPB 100 ML IVPB SCH (09:00)
[2016-12-24 09:04] LABS: ANION GAP 9 (8-16); CALCIUM 8.3 mg/dL (8.5-10.1); CO2 27 mmol/L (21-32); CREATININE 0.5 mg/dL (0.55-1.02); GLUCOSE,RANDOM 75 mg/dL (74-106)
[2016-12-24] MEDS ORDERED: POTASSIUM CHLORIDE TABS 20 MEQ TABLET.ER (FP) PO ONE (09:52)
[2016-12-24] MEDS: IBUPROFEN 800 MG/8 ML IJ IVPB PRN (12:33)
[2016-12-25 08:48] LABS: ANION GAP 8 (8-16); CALCIUM 9.1 mg/dL (8.5-10.1); CO2 30 mmol/L (21-32); CREATININE 0.7 mg/dL (0.55-1.02); GLUCOSE,RANDOM 90 mg/dL (74-106)
[2016-12-25] MEDS: LEVOFLOXACIN 500 MG IVPB 100 ML IVPB SCH ×2 (11:11→12:37)
[2016-12-25] MEDS: PANTOPRAZOLE SODIUM 40 MG/100 ML PRE-DOCKED IVPB SCH ×2 (11:11→12:37)
[2016-12-25] MEDS: ENOXAPARIN NA (PORCINE) 40 MG/0.4 ML DISP.SYRIN SQ SCH (11:11)
[2016-12-25] MEDS: LACTATED RINGERS SOLUTION 1,000 ML IV SCH (12:37)
[2016-12-25 15:00] VITALS: BP 134/71; PULSE 84; TEMP 99
--- NOTE | 2016-12-25 15:51 | DS ---
Physical Examination Vital Signs: Vital Signs Temperature 99.0 F 12/25/16 14:59 Pulse Rate 84 12/25/16 14:59 Respiratory Rate 16 12/25/16 14:59 Blood Pressure 134/71 12/25/16 14:59 O2 Sat by Pulse Oximetry (%) 97 12/24/16 21:00 Constitutional: Yes: Well Nourished, No Distress, Calm Cardiovascular: Yes: Regular Rate and Rhythm. No: Gallop, Murmur, Rub Respiratory: Yes: Regular, CTA Bilaterally. No: Rales, Rhonchi, Wheezes Gastrointestinal: Yes: Normal Bowel Sounds, Soft. No: Distention, Tenderness Extremities: Yes: WNL Edema: No Labs: CBC, BMP 12/24/16 06:30 12/25/16 06:30 Discharge Summary Reason For Visit: SMALL BOWEL OBSTRUCTION Hospital Course: (1) Small bowel obstruction Code(s): K56.69 - OTHER INTESTINAL OBSTRUCTION (2) Laryngeal edema Ms Griffiths is a very pleasant 36 year old female who came in with SBO. She was admitted to the hospital and NGT was placed. She was seen by surgery, and after discussion she underwent surgical intervention. She had lysis of adhesion and improved. NGT was removed and she tolerated a regular diet. She passed gas and had a bowel movement. She had a difficult intubation and was seen by ENT. Vocal rest is recommended and follow up with ENT as an outpatient. She is safe for discharge home. 31 minutes spent in preparation of this discharge Condition: Good - Instructions Diet, Activity, Other Instructions: Resume previous diet and activity. No heavy lifting, pushing or pulling. On your 1st week go easy with your diet; full liquids to regular light foods. Follow up with your surgeon in 2 weeks; call the office and make an appointment. If any questions call the surgeon. You may shower, do not rub sadie, just let soap and water rinse over sadie. Referrals: Damon Jacob MD [Staff Physician] - Daisy Amador MD [Primary Care Provider] - Bryan Cho MD [Staff Physician] - Bryan Alford MD [Staff Physician] - Disposition: HOME - Home Medications Comprehensive Discharge Medication List: Ambulatory Orders Oxycodone HCl [Roxicodone -] 7.5 mg PO Q4H PRN #30 tablet MDD 45mg 12/25/16
== END 2016-12-25 15:01 | disposition home or self-care (01) | DRG 227 ==
LOC: JER 15:09 → JERBED 12-21 00:26 → UNDOADMIN 12-21 00:46 → JERBED 12-21 00:46 → J6S 12-21 02:30
PROVIDERS: ADMIT Internal Medicine Geriatric Medicine; ATTEND Internal Medicine Geriatric Medicine
PROC: 0DNW0ZZ Release Peritoneum, Open Approach (ICD-10-PCS; 2016-12-21)
PROC: 0WJG0ZZ Inspection of Peritoneal Cavity, Open Approach (ICD-10-PCS; 2016-12-21)
PROC: 3E1M38Z Irrigation of Peritoneal Cavity using Irrigating Substance, Percutaneous Approach (ICD-10-PCS; 2016-12-21)
PROC: 0D9670Z Drainage of Stomach with Drainage Device, Via Natural or Artificial Opening (ICD-10-PCS; 2016-12-21)
PROC: 0WQF0ZZ Repair Abdominal Wall, Open Approach (ICD-10-PCS; principal; 2016-12-21 17:00)
DX: K46.0 Unspecified abdominal hernia with obstruction, without gangrene (principal); J38.4 Edema of larynx; R49.0 Dysphonia
CPT/HCPCS: 36415; 71010-TC; 74177-TC; 76705-TC; 80048; 80053; 81003; 81015; 82550; 83605; 83690; 83735; 84100; 84484; 84703; 85025; 85027; 93005; 93010; 94760; 99283-25

== ENCOUNTER 2018-07-11 17:01 | Emergency (ER) | payer OTHER ==
[2018-07-11 17:09] VITALS: BP 106/49; PULSE 67; TEMP 98.6; BMI 30.2
--- NOTE | 2018-07-11 17:09 | PDOC ---
Rapid Medical Evaluation Time Seen by Provider: 07/11/18 17:06 Medical Evaluation: Allergies Allergy/AdvReac Type Severity Reaction Status Date / Time No Known Allergies Allergy Verified 12/20/16 15:13 07/11/18 17:06 I have performed a brief in-person evaluation of this patient. The patient presents with a chief complaint of: Low back pain after bending down this morning. Took Motrin and used heating pad without relief. Pertinent physical exam findings: Lumbar paraspinal tenderness. Moving all extremities, no saddle anesthesia. I have ordered the following: Pgu. The patient will proceed to the ED for further evaluation. Discharge Disposition - Diagnosis Low back pain Qualifiers: Chronicity: acute Back pain laterality: midline Sciatica presence: without sciatica Qualified Code(s): M54.5 - Low back pain - Referrals - Patient Instructions - Post Discharge Activity
[2018-07-11] MEDS ORDERED: KETOROLAC TROMETHAMINE 60 MG/2 ML VIAL IM ONE (17:57)
[2018-07-11] MEDS ORDERED: CYCLOBENZAPRINE HCL 10 MG TABLET (FP) PO ONE (17:57)
[2018-07-11] MEDS ORDERED: KETOROLAC TROMETHAMINE 60 MG/2 ML VIAL ONE (18:06)
[2018-07-11] MEDS ORDERED: CYCLOBENZAPRINE HCL 10 MG TABLET (FP) ONE (18:07)
--- NOTE | 2018-07-11 19:01 | PDOC ---
History of Present Illness - General Chief Complaint: Back Pain Stated Complaint: BACK PAIN Time Seen by Provider: 07/11/18 17:06 History Source: Patient Exam Limitations: Clinical Condition - History of Present Illness Initial Comments: 07/11/18 18:54 Patient with no significant past medical history present with complaint of worsening lower back pain status post bending over to pick something up from the floor is morning. Patient reported taking Motrin and heat pad with no relief in symptoms. Patient reported her daughter jumped on her back a week ago when sleeping in bed and had pain for 2 days which resolved. Patient did not follow-up for previous injury. Patient reported increased pain to lower back when getting up from sitting or laying position. Patient denies numbness or tingling sensation. Patient denies any other symptoms 07/11/18 19:01 Timing/Duration: getting worse Past History - Past Medical History Allergies/Adverse Reactions: Allergies Allergy/AdvReac Type Severity Reaction Status Date / Time No Known Allergies Allergy Verified 12/20/16 15:13 Home Medications: Ambulatory Orders Back Brace [Ultra Support] 1 each MC DAILY #1 each 07/11/18 Methocarbamol [Robaxin -] 500 mg PO TID PRN #21 tablet 07/11/18 Naproxen 500 mg PO BID PRN #20 tablet 07/11/18 COPD: No - Immunization History Immunization Up to Date: No - Suicide/Smoking/Psychosocial Hx Smoking History: Never smoked Have you smoked in the past 12 months: No Information on smoking cessation initiated: No Hx Alcohol Use: No Drug/Substance Use Hx: No Review of Systems - Review of Systems Able to Perform ROS?: Yes Is the patient limited Dominican proficient: No Constitutional: No: Weakness HEENTM: No: Symptoms Reported Respiratory: No: Symptoms reported Cardiac (ROS): No: Symptoms Reported ABD/GI: No: Symptoms Reported Musculoskeletal: Yes: See HPI, Back Pain (b/l lower back), Muscle Pain (lower back). No: Muscle Weakness Neurological: No: Numbness, Paresthesia, Tingling, Weakness All Other Systems: Reviewed and Negative *Physical Exam - Vital Signs Last Vital Signs Temp Pulse Resp BP Pulse Ox 98.6 F 67 18 106/49 L 100 07/11/18 17:06 07/11/18 17:06 07/11/18 17:06 07/11/18 17:06 07/11/18 17:06 - Physical Exam Comments: 07/11/18 18:57 GENERAL: Well developed, well nourished. Awake and alert. No acute distress. CARDIOVASCULAR: Regular rate and rhythm. No murmurs, rubs, or gallops. PULMONARY: No evidence of respiratory distress. Lungs clear to auscultation bilaterally. No wheezing, rales or rhonchi. ABDOMINAL: Soft. Non-tender. Non-distended. No rebound or guarding. No organomegaly. Normoactive bowel sounds MUSCULOSKELETAL : moderate tenderness over posterior paravertebral muscle Lumbar spine of L4-S1 on bilateral sides. no saddle paresthesia. no incontinence. No bony deformities SKIN: Warm and dry. Normal capillary refill. NEUROLOGICAL: Alert, awake, appropriate. No motor deficits in the lower extremities. Gait is normal without ataxia. PSYCHIATRIC: Cooperative. Good eye contact. Appropriate mood and affect. General Appearance: Yes: Nourished, Appropriately Dressed, Moderate Distress Moderate Sedation - Procedure Monitoring Vital Signs: Procedure Monitoring Vital Signs Temperature 98.6 F 07/11/18 17:06 Pulse Rate 67 07/11/18 17:06 Respiratory Rate 18 07/11/18 17:06 Blood Pressure 106/49 L 07/11/18 17:06 O2 Sat by Pulse Oximetry (%) 100 07/11/18 17:06 ED Treatment Course - RADIOLOGY Radiology Studies Ordered: Category Date Time Status SPINE-LUMBAR ONLY [RAD] Stat Radiology 07/11/18 17:58 Ordered - Medications Given in the ED: ED Medications Discontinued Medications Generic Name Dose Route Start Last Admin Trade Name Freq PRN Reason Stop Dose Admin Cyclobenzaprine HCl 10 mg 07/11/18 17:57 07/11/18 18:25 Flexeril - PO 07/11/18 17:58 10 mg ONCE ONE Administration Ketorolac Tromethamine 60 mg 07/11/18 17:57 07/11/18 18:25 Toradol Injection - IM 07/11/18 17:58 60 mg ONCE ONE Administration Medical Decision Making - Medical Decision Making 07/11/18 19:02 Patient with no significant past medical history present with complaint of worsening lower back pain status post bending over to pick something up from the floor is morning. Patient reported taking Motrin and heat pad with no relief in symptoms. Patient reported her daughter jumped on her back a week ago was sleeping in bed and had pain for 2 days which resolved. Patient did not follow-up for previous injury. Patient reported increased pain to lower back when getting up from sitting or laying position. Exam significant for moderate tenderness over posterior paravertebral muscle Lumbar spine of L4-S1 on bilateral sides. no saddle paresthesia. no incontinence. Toradol 60 mg IM and cyclobenzaprine 10 mg by mouth given for pain. test ordered per patient report she believed she is not and signed a waiver. X-ray of lumbosacral ordered. Symptoms likely back strain with back spasm. Treat based on imaging results 07/11/18 19:31 X-ray of lumbosacral shows no dislocation. X-ray shows mild lumbar spine straightening consistent with back spasm. Patient is stable for discharge on NSAIDs and muscle relaxer with neurosurgery follow-up as needed. *DC/Admit/Observation/Transfer Diagnosis at time of Disposition: Back spasm Low back pain Qualifiers: Chronicity: acute Back pain laterality: midline Sciatica presence: without sciatica Qualified Code(s): M54.5 - Low back pain - Discharge Dispostion Disposition: HOME Condition at time of disposition: Stable Decision to Admit order: No - Prescriptions Prescriptions: Back Brace [Ultra Support] 1 each MC DAILY #1 each Methocarbamol [Robaxin -] 500 mg PO TID PRN #21 tablet PRN Reason: Back Pain Naproxen 500 mg PO BID PRN #20 tablet PRN Reason: Back Pain - Referrals Referrals: Jermaine Spence MD, [facility] [Staff Physician] - - Patient Instructions Printed Discharge Instructions: DI for Back Spasm Additional Instructions: X-ray of the back shows no dislocation or fracture. The symptoms is likely back spasm. Take medication as prescribed. Apply heat to back 2-3 times a day for 5- 10 minutes as needed for back pain. Use prescribed back support brace daily as needed. Follow-up with referred orthopedics site acquisition specialist if symptoms persist for more than 4 days. - Post Discharge Activity
== END 2018-07-11 19:51 | disposition home or self-care (01) ==
LOC: JER 17:01 → JERFT 17:01
PROC: 3E0233Z Introduction of Anti-inflammatory into Muscle, Percutaneous Approach (ICD-10-PCS; principal; 2018-07-11)
DX: M62.830 Muscle spasm of back (principal)
CPT/HCPCS: 72100-TC-FY; 99281-25